=== PATIENT | female | born 1980 | race Caucasian/White ===

== ENCOUNTER 2016-07-18 11:12 | Emergency (ER) | payer MEDICAID ==
[~2016-07-18] VITALS: Ht 157.5 cm; Wt 55.0 kg
[~2016-07-18 11:12] MED LIST: DIAZ10TA PO; FIORIC PO; GABA600T PO; IBUP800 PO; LORTA10 PO; MOBI15TA PO; MONT10TA2 PO; PROZ20CA11 PO
[2016-07-18 11:15] VITALS: BP 125/95; PULSE 91; RESP 14; TEMP 98.7; O2SAT 97
[2016-07-18] MEDS ORDERED: HYDR-3535 PO (11:25)
--- NOTE | 2016-07-18 11:29 | PD ---
HPI Chief Complaint: Cold / Flu Symptoms Time Seen by Provider: 11:25 Travel History International Travel<30 days: No Contact w/Intl Traveler<30days: No Traveled to known affect area: No History of Present Illness HPI Patient comes in with cough and congestion ongoing for 3 days. Patient reports vomiting around 3 AM this morning as well as feeling warm the past 3 days. Patient denies any fevers, nausea, diarrhea, chest pain, shortness of breath, abdominal pain, or headache. Denies doing anything for this. Denies anything making it better or worse. Cough is occasionally productive with yellowish phlegm. PFSH Past Medical History Asthma: Yes Anxiety: Yes Depression: Yes Cardiovascular Problems: Yes (MURMER) Diabetes: No Diminished Hearing: No Musculoskeletal: Yes (LUMBAR DJD, L1, S5, CHRONIC BACK PAIN) Psychiatric: Yes (ANXIETY) Respiratory: Yes (ASTHMA) Immunizations Current: No ?: Not : 1 Past Surgical History AICD: No Gynecologic Surgery: Yes ( MISCARRIAGE) Joint Replacement: No Pacemaker: No Thoracic Surgery: Yes (BREAST AUGMENTATION) Other Surgery: Yes (BREAST AUGMENTATION AND PILONIDAL CYSY REMOVED) Social History Alcohol Use: Yes Tobacco Use: Yes (1 PPD) Substance Use: Yes Allergies-Medications (Allergen,Severity, Reaction): Coded Allergies: Amitriptyline (Unverified Allergy, Severe, UNSTEADY GATE/DIZZINESS, 07/18/16 ) Effexor (Verified Allergy, Severe, UNSTEADY GATE/ DIZZINESS, 07/18/16) Cultivated Oat Pollen (Verified Allergy, Intermediate, 07/18/16) Latex (Verified Allergy, Intermediate, skin swelling, 07/18/16) Lemon (Verified Allergy, Intermediate, YEAST INFECTION, 07/18/16) Prednisone (Verified Allergy, Mild, NAUSEA, DIZZY, 07/18/16) Uncoded Allergies: [place] (Allergy, Mild, THROAT SWELLING, 10/14/10) Reported Meds & Prescriptions Reported Meds & Active Scripts Active Tessalon Perles (Benzonatate) 100 Mg Cap 200 Mg PO Q8HR PRN Ventolin Hfa 18 GM Inh (Albuterol Sulfate) 90 Mcg/Act Aer 2 Puff INH Q4H PRN Reported Lortab (Hydrocodone-Acetaminophen) 10-325 Mg Tab 1 Tab PO TID Review of Systems Except as stated in HPI: all other systems reviewed are Neg Physical Exam Narrative GENERAL: Well-developed, well nourished, in no acute distress, and non-ill appearing. SKIN: Focused skin assessment warm and dry. HEAD: Atraumatic. Normocephalic. EYES: Pupils equal and round. EOMI. No scleral icterus. No injection or drainage. ENT: No nasal bleeding or discharge. Mucous membranes pink and moist. Tympanic membranes pearly marie bilaterally. Posterior pharynx nonerythematous without exudate. Uvula is midline. No tenderness to facial sinuses to palpation. NECK: Trachea midline. No cervical lymphadenopathy. Supple. No nuclear rigidity. CARDIOVASCULAR: Regular rate and rhythm. No murmur appreciated. RESPIRATORY: No accessory muscle use. No respiratory distress. Clear to auscultation. Breath sounds equal bilaterally. GMUSCULOSKELETAL: No obvious deformities. No clubbing. No cyanosis. No edema. Full range of motion. NEUROLOGICAL: Awake and alert. No obvious cranial nerve deficits. Motor grossly within normal limits. Normal speech. PSYCHIATRIC: Appropriate mood and affect; insight and judgment normal. Data Data Last Documented VS Vital Signs Date Time Temp Pulse Resp B/P Pulse Ox O2 Delivery O2 Flow Rate FiO2 07/18/16 11:15 98.7 91 14 125/95 97 Orders Influenzae A/B Antigen (07/18/16 11:24) Group A Rapid Strep Screen (07/18/16 11:24) Chest, Single Ap (07/18/16 ) Strep Culture (Group A) (07/18/16 11:25) MDM Medical Decision Making Medical Screen Exam Complete: Yes Emergency Medical Condition: Yes Differential Diagnosis Influenza, strep pharyngitis, pneumonia, upper respiratory infection, bronchitis , viral syndrome, other Narrative Course Patients symptom complex of cough and congestion is consistent with viral URI. The patient is non-ill appearing and is in no respiratory distress and comfortable. The patient moves air well and oxygen saturations are normal. There is no clinical evidence to suggest pneumonia at this time. Plan of care and management were discussed with the patient who agreed with plan. The patient was instructed to follow up with their physician and instructed to return if worsens, progressively worsening shortness of breath or difficulty breathing, persistent fever, chest pains or discomfort, inability to keep medication or fluids down with or without vomiting, or as needed. Patient in no obvious distress upon re-evaluation. All pertinent laboratory/ Radiology result(s) discussed with patient. Patient was asked if they wanted to speak to my attending, which the patient did not wish to do at this time. Any questions/concerns in reference to patient diagnosis/condition discussed and clarified prior to patient's discharge. Reinforced sheer importance of close follow up with patient's primary physician or primary care clinic. Instructed patient to return to ED immediately, if symptoms return/worsen. Pt showed understanding of above instructions. Further instructions and recommendations were detailed in discharge paperwork. Pt ambulated without difficulty out of ED at discharge. Diagnosis Primary Impression: Upper respiratory infection, viral Patient Instructions: General Instructions, Upper Respiratory Infection (ED) Additional Instructions: Follow-up with your primary care physician in 3-5 days. Take all medication as prescribed. Drink plenty of non-caffeinated and nonalcoholic fluids. Return to the emergency department if symptoms get worse. Med/Other Pt SpecificInfo: Prescription(s) given Scripts Benzonatate (Tessalon Perles)100 Mg [id number] Mg PO Q8HR PRN (COUGH) #15 CAP Ref 0 Prov:Juve Stacy MD 07/18/16 Albuterol 18 GM Inh (Ventolin Hfa 18 GM Inh)90 Mcg/Act Aer2 Puff INH Q4H PRN ( COUGH) #1 INHALER Ref 0 Prov:Juve Stacy MD 07/18/16 Disposition: 01 DISCHARGE HOME Condition: Stable Jung Boyer Jul 18, 2016 11:29
--- NOTE | 2016-07-18 12:10 | RADHPO ---
EXAM DATE/TIME: 07/18/2016 11:51 [facility] COMPARISON: No previous studies available for comparison. INDICATIONS : Congestion and productive cough for three days. MEDICAL HISTORY : Asthma. Heart murmur. SURGICAL HISTORY : Breast augmentation. ENCOUNTER: Initial ACUITY: 3 days PAIN SCORE: 0/10 LOCATION: Bilateral chest FINDINGS: A single view of the chest demonstrates the lungs to be symmetrically aerated without evidence of mas s, infiltrate or effusion. The cardiomediastinal contours are unremarkable. Osseous structures are intact. CONCLUSION: No acute disease. Tahir Palma MD FACR on July 18, 2016 at 12:09 Board Certified Radiologist. This report was verified electronically.
[2016-07-18] MEDS ORDERED: VENTAER INH ×2 (12:14→12:26)
[2016-07-18] MEDS ORDERED: BENZ100 PO ×2 (12:14→12:26)
== END 2016-07-18 12:38 | disposition home or self-care (01) ==
LOC: PHEFT 11:12
DX: J06.9 Acute upper respiratory infection, unspecified (principal); J45.909 Unspecified asthma, uncomplicated; F41.9 Anxiety disorder, unspecified; F32.9 Major depressive disorder, single episode, unspecified; F17.200 Nicotine dependence, unspecified, uncomplicated
CPT/HCPCS: 71010; 87081; 87804; 87880; 99283

== ENCOUNTER 2016-10-16 06:01 | Emergency (ER) | payer MEDICAID ==
[~2016-10-16] VITALS: Ht 162.6 cm; Wt 59.8 kg
[~2016-10-16 06:01] MED LIST changes: +BENZ100 PO; -DIAZ10TA PO; -FIORIC PO; -GABA600T PO; +HYDR-3535 PO; -IBUP800 PO; -LORTA10 PO; -MOBI15TA PO; -MONT10TA2 PO; -PROZ20CA11 PO; +VENTAER INH
[2016-10-16 06:09] VITALS: BP 126/88; PULSE 87; RESP 14; TEMP 98.5; O2SAT 98
[2016-10-16 06:17] VITALS: BP 126/88; PULSE 87; RESP 18; TEMP 98.5
[2016-10-16] MEDS ORDERED: OXYC-395 PO (06:33)
[2016-10-16] MEDS ORDERED: FLUO-1 PO (06:33)
--- NOTE | 2016-10-16 06:33 | PD ---
HPI Chief Complaint: Skin Problem Time Seen by Provider: 06:24 Travel History International Travel<30 days: No Contact w/Intl Traveler<30days: No Traveled to known affect area: No History of Present Illness HPI The patient is a 36-year-old female who has multiple allergies including latex, grass and pollens who complains of a pruritic skin rash below her left axilla, on her neck, behind her knees and conjunctival injection in her right eye for 1 day. 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 She denies any wheezing or shortness of breath. The patient does have a history of bronchospasm, possible asthma. She denies any fever. The patient states she cannot be because she is not sexually active lately. PFSH Past Medical History Asthma: Yes Anxiety: Yes Depression: Yes Cardiovascular Problems: Yes (MURMER) Diabetes: No Diminished Hearing: No Musculoskeletal: Yes (LUMBAR DJD, L1, S5, CHRONIC BACK PAIN) Psychiatric: Yes (ANXIETY) Respiratory: Yes (ASTHMA) Immunizations Current: No Influenza Vaccination: No ?: Not LMP: 6 months ago : 1 Past Surgical History AICD: No Gynecologic Surgery: Yes ( MISCARRIAGE) Joint Replacement: No Pacemaker: No Thoracic Surgery: Yes (BREAST AUGMENTATION) Other Surgery: Yes (BREAST AUGMENTATION AND PILONIDAL CYSY REMOVED) Social History Alcohol Use: Yes Tobacco Use: Yes (1ppd) Substance Use: Yes Allergies-Medications (Allergen,Severity, Reaction): Coded Allergies: Amitriptyline (Verified Allergy, Severe, UNSTEADY GATE/DIZZINESS, 10/16/16) Effexor (Verified Allergy, Severe, UNSTEADY GATE/ DIZZINESS, 10/16/16) Cultivated Oat Pollen (Verified Allergy, Intermediate, 10/16/16) Latex (Verified Allergy, Intermediate, skin swelling, 10/16/16) Lemon (Verified Allergy, Intermediate, YEAST INFECTION, 10/16/16) Prednisone (Verified Allergy, Mild, NAUSEA, DIZZY, 10/16/16) Uncoded Allergies: [place] (Allergy, Mild, THROAT SWELLING, 10/14/10) Reported Meds & Prescriptions Reported Meds & Active Scripts Active Prednisone 50 Mg Tab 50 Mg PO BID Ventolin Hfa 18 GM Inh (Albuterol Sulfate) 90 Mcg/Act Aer 2 Puff INH Q4H PRN Reported Oxycodone (Oxycodone HCl) 10 Mg Tab 10 Mg PO Q6H PRN Prozac (Fluoxetine HCl) 10 Mg Cap 10 Mg PO DAILY Review of Systems Except as stated in HPI: all other systems reviewed are Neg Physical Exam Narrative GENERAL: Well-nourished, well-developed patient in slight apparent distress with her pruritic skin rash. Her vital signs are normal. SKIN: Focused skin assessment warm/dry. There is an erythematous, confluent, slightly papular skin rash located below the left axilla and onto the left lateral thorax's area, behind her neck, both ears, conjunctival area on the right behind the left knee, up on the posterior scalp and both flank areas. HEAD: Normocephalic. EYES: No scleral icterus. No injection or drainage. NECK: Supple, trachea midline. No JVD or lymphadenopathy. CARDIOVASCULAR: Regular rate and rhythm without murmurs, gallops, or rubs. RESPIRATORY: Breath sounds equal bilaterally. No accessory muscle use. Lungs clear to auscultation bilaterally, specifically no wheezes are heard. GASTROINTESTINAL: Abdomen soft, non-tender, nondistended. MUSCULOSKELETAL: No cyanosis, or edema. BACK: Nontender without obvious deformity. No CVA tenderness. Data Data Last Documented VS Vital Signs Date Time Temp Pulse Resp B/P Pulse Ox O2 Delivery O2 Flow Rate FiO2 10/16/16 06:34 77 18 135/79 98 Room Air 10/16/16 06:17 98.5 Orders Prednisone (Deltasone) (10/16/16 06:45) Diphenhydramine (Benadryl) (10/16/16 06:45) Famotidine (Pepcid) (10/16/16 06:45) [facility] Medical Decision Making Medical Screen Exam Complete: Yes Emergency Medical Condition: Yes Medical Record Reviewed: Yes Differential Diagnosis Generalized allergic reaction, contact dermatitis, viral rash, latex allergy Narrative Course The patient has a generalized allergic rash. The etiology of this rash is undetermined at this time. Plan: The patient will be put on Zantac, Benadryl and a tapered course of prednisone over a days. She was offered epinephrine but she says she has anxiety does not want her heart to pound. She should follow-up with a pre sales systems engineer or primary care physician. Diagnosis Primary Impression: Rash due to allergy Med/Other Pt SpecificInfo: Prescription(s) given Scripts Ranitidine (Zantac)150 Mg [id number] Mg PO BID #30 TAB Ref 0 Prov:Mukul Whitlock MD 10/16/16 Prednisone 50 Mg Tab50 Mg PO BID #12 TAB Ref 0 Prov:Mukul Whitlock MD 10/16/16 Disposition: 01 DISCHARGE HOME Condition: Stable Mukul Whitlock MD Oct 16, 2016 06:33
[2016-10-16 06:34] VITALS: BP 135/79; PULSE 77; RESP 18; O2SAT 98
[2016-10-16] MEDS ORDERED: PRED50 PO (06:37)
[2016-10-16] MEDS ORDERED: ZANT150T2 PO (06:38)
[2016-10-16] MEDS ORDERED: FAMOTIDINE 20 MG TAB PO ONE (06:45)
[2016-10-16] MEDS ORDERED: EPINEPHrine HCL (1:1000) 1 MG/ML VIAL IM ONE (06:45)
[2016-10-16] MEDS ORDERED: diphenhydrAMINE HCL 50 MG CAP PO ONE (06:45)
[2016-10-16] MEDS ORDERED: predniSONE 20 MG TAB PO ONE (06:45)
== END 2016-10-16 06:56 | disposition home or self-care (01) ==
LOC: PHED 06:37
DX: R21 Rash and other nonspecific skin eruption (principal); J45.909 Unspecified asthma, uncomplicated; R01.1 Cardiac murmur, unspecified
CPT/HCPCS: 99283; J7512; Q0163

== ENCOUNTER 2017-01-29 22:50 | Emergency (ER) | payer MEDICAID ==
[~2017-01-29] VITALS: Ht 162.6 cm; Wt 61.8 kg
[~2017-01-29 22:50] MED LIST changes: -BENZ100 PO; +FLUO-1 PO; -HYDR-3535 PO; +OXYC-395 PO; +PRED50 PO; +ZANT150T2 PO
[2017-01-29 23:01] VITALS: BP 125/74; PULSE 94; RESP 16; TEMP 97.7; O2SAT 97
--- NOTE | 2017-01-29 23:48 | PD ---
HPI Chief Complaint: Musculoskeletal Complaint Time Seen by Provider: 23:20 Travel History International Travel<30 days: No Contact w/Intl Traveler<30days: No Traveled to known affect area: No History of Present Illness HPI 36yo F with chronic back pain, sciatica and psych presents to the ED with c/o left lower back pain after drinking alcohol and vomiting about an hour ago. States her back tightened up and is in spasm. States pain is worst with movement. States it goes down to her left buttocks and she has history of sciatica. Pt has pain management for chronic back pain and takes lortab for it. States she has been on it for 18-19 years. Denies any fever, chest pain, sob, n/v, abdominal pain, focal weakness or numbness, trauma, fall, IVDA. Pt states she does not want any pain medication and wants me to figure out what is wrong with her. She said she does not want blood test, or give urine. Said she has 3 doctors (pain management, PMD and psychiatrist) and just want someone to figure out what is wrong with her. I offered valium but pt refused. PFSH Past Medical History Asthma: Yes Anxiety: Yes Depression: Yes Cardiovascular Problems: Yes (MURMER) Diabetes: No Diminished Hearing: No Musculoskeletal: Yes (LUMBAR DJD, L1, S5, CHRONIC BACK PAIN) Psychiatric: Yes (ANXIETY) Respiratory: Yes (ASTHMA) Immunizations Current: No ?: Not : 1 Past Surgical History AICD: No Gynecologic Surgery: Yes ( MISCARRIAGE) Joint Replacement: No Pacemaker: No Thoracic Surgery: Yes (BREAST AUGMENTATION) Other Surgery: Yes (BREAST AUGMENTATION AND PILONIDAL CYSY REMOVED) Social History Alcohol Use: Yes Tobacco Use: Yes (1ppd) Substance Use: Yes Allergies-Medications (Allergen,Severity, Reaction): Coded Allergies: amitriptyline (Unverified Allergy, Severe, UNSTEADY GATE/DIZZINESS, ) venlafaxine (Unverified Allergy, Severe, UNSTEADY GATE/ DIZZINESS, 12/01/16 ) grass pollen (Unverified Allergy, Intermediate, 12/01/16) latex (Unverified Allergy, Intermediate, skin swelling, 12/01/16) lemon (Unverified Allergy, Intermediate, YEAST INFECTION, 12/01/16) prednisone (Unverified Allergy, Mild, NAUSEA, DIZZY, 12/01/16) Uncoded Allergies: [place] (Allergy, Mild, THROAT SWELLING, 10/14/10) Reported Meds & Prescriptions Reported Meds & Active Scripts Active Zantac (Ranitidine HCl) 150 Mg Tab 150 Mg PO BID Prednisone 50 Mg Tab 50 Mg PO BID Ventolin Hfa 18 GM Inh (Albuterol Sulfate) 90 Mcg/Act Aer 2 Puff INH Q4H PRN Reported Oxycodone (Oxycodone HCl) 10 Mg Tab 10 Mg PO Q6H PRN Prozac (Fluoxetine HCl) 10 Mg Cap 10 Mg PO DAILY Review of Systems Except as stated in HPI: all other systems reviewed are Neg Physical Exam Narrative GENERAL: 36yo F not in distress. SKIN: Focused skin assessment warm/dry. HEAD: Atraumatic. Normocephalic. EYES: Pupils equal and round. No scleral icterus. No injection or drainage. ENT: No nasal bleeding or discharge. Mucous membranes pink and moist. NECK: Trachea midline. No JVD. CARDIOVASCULAR: Regular rate and rhythm. No murmur appreciated. RESPIRATORY: No accessory muscle use. Clear to auscultation. Breath sounds equal bilaterally. GASTROINTESTINAL: Abdomen soft, non-tender, nondistended. BACK: No midline thoracic or lumbar spine ttp. Left lumbar paraspinal ttp. No CVA tenderness bilaterally. MUSCULOSKELETAL: No obvious deformities. No clubbing. No cyanosis. No edema. NEUROLOGICAL: Awake and alert. No obvious cranial nerve deficits. Motor grossly within normal limits. Normal speech. Sensation intact. No saddle paresthesia. Data Data Last Documented VS Vital Signs Date Time Temp Pulse Resp B/P (MAP) Pulse Ox O2 Delivery O2 Flow Rate FiO2 01/29/17 23:01 97.7 94 16 125/74 (91) 97 MDM Medical Decision Making Medical Screen Exam Complete: Yes Emergency Medical Condition: Yes Differential Diagnosis Musculoskeletal pain vs. acute on chronic back pain vs. sciatica Narrative Course 36yo F with left back spasm after vomiting here for evaluation but refusing any medications or work up. States she just wants me to tell her what is wrong with her. She has been having back pain for 19 years and has no acute trauma or neurologic symptoms. Pt is with her mother and brother. Pt states she has lortab and ibuprofen and does not need any pain medications. Will have pt follow up with PMD as I do not believe she has an emergency. Diagnosis Primary Impression: Left low back pain Qualified Codes: M54.42 - Lumbago with sciatica, left side Patient Instructions: General Instructions Departure Forms: Tests/Procedures Additional Instructions: Please follow up with your primary care physician in 3-7 days. Return to the ED if symptoms worsen. Med/Other Pt SpecificInfo: No Change to Meds Disposition: 01 DISCHARGE HOME Condition: Stable Aparna Alaniz DO Jan 29, 2017 23:48
== END 2017-01-30 00:33 | disposition home or self-care (01) ==
LOC: PHED 22:50
DX: M54.42 Lumbago with sciatica, left side (principal); R11.10 Vomiting, unspecified; G89.29 Other chronic pain; J45.909 Unspecified asthma, uncomplicated; Z72.0 Tobacco use
CPT/HCPCS: 99281

== ENCOUNTER 2017-09-26 13:25 | Emergency (ER) | payer MEDICAID ==
[~2017-09-26] VITALS: Ht 160 cm; Wt 50.0 kg
[2017-09-26 13:32] VITALS: BP 123/83; PULSE 106; RESP 16; TEMP 98.7; O2SAT 99
[2017-09-26] MEDS ORDERED: SODIUM CHLOR 0.9% 1000 ML INJ 1,000 ML IV ONE (14:00)
[2017-09-26] MEDS ORDERED: ADDE10 PO (14:02)
[2017-09-26] MEDS ORDERED: VITA1000 PO (14:02)
[2017-09-26] MEDS ORDERED: HYDR-3366 PO (14:02)
[2017-09-26] MEDS ORDERED: XANA1TAB2 PO (14:02)
[2017-09-26] MEDS ORDERED: PAXI10TA8 PO (14:02)
[2017-09-26] MEDS ORDERED: IBUP1TAB7 PO (14:02)
[2017-09-26] MEDS ORDERED: CENTCHW4 CHEW (14:02)
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
[2017-09-26 14:19] LABS: AUTOMATED NEUTROPHIL # 3.4 TH/MM3 (1.8-7.7); BASOPHIL % 0.6 % (0.0-2.0); EOSINOPHIL # 0.2 TH/MM3 (0-0.4); EOSINOPHIL % 3.1 % (0.0-4.0); HEMATOCRIT 39.6 % (35.0-46.0); HEMOGLOBIN 13.9 GM/DL (11.6-15.3); LYMPH % 35.9 % (9.0-44.0); LYMPHOCYTE # 2.2 TH/MM3 (1.0-4.8); MEAN CELL VOLUME 89.7 FL (80.0-100.0); MEAN CORPUSCULAR HEMOGLOBIN 31.5 PG (27.0-34.0); MEAN CORPUSCULAR HGB CONC 35.1 % (32.0-36.0); MEAN PLATELET VOLUME 8.6 FL (7.0-11.0); MONO % 5.4 % (0.0-8.0); MONOCYTE # 0.3 TH/MM3 (0-0.9); PLATELET COUNT 333 TH/MM3 (150-450); RED BLOOD COUNT 4.42 MIL/MM3 (4.00-5.30); RED CELL DISTRIBUTION WIDTH 13.3 % (11.6-17.2); WHITE BLOOD COUNT 6.1 TH/MM3 (4.0-11.0)
[2017-09-26 14:27] LABS: CHLORIDE 107 MEQ/L (98-107); SODIUM (NA) 138 MEQ/L (136-145)
[2017-09-26 14:30] LABS: CALCIUM 8.7 MG/DL (8.5-10.1)
[2017-09-26 14:31] LABS: ALBUMIN 3.9 GM/DL (3.4-5.0); BICARBONATE 25.4 MEQ/L (21.0-32.0); BLOOD UREA NITROGEN 14 MG/DL (7-18); GLUCOSE,RANDOM 79 MG/DL (74-106)
[2017-09-26 14:34] LABS: ALT (GPT) 15 U/L (10-53); AST (GOT) 11 U/L (15-37); CREATININE 0.68 MG/DL (0.50-1.00); GLOMERULAR FILTRATION RATE 98 ML/MIN (>89)
[2017-09-26 14:35] LABS: TOTAL BILIRUBIN ADULT 0.3 MG/DL (0.2-1.0)
[2017-09-26 14:36] LABS: TOTAL PROTEIN 6.9 GM/DL (6.4-8.2)
[2017-09-26 14:37] LABS: ALKALINE PHOSPHATASE 54 U/L (45-117)
[2017-09-26 15:18] VITALS: BP 125/79
== END 2017-09-26 15:25 | disposition home or self-care (01) ==
LOC: PHED 13:25
DX: K52.9 Noninfective gastroenteritis and colitis, unspecified (principal); R53.81 Other malaise; F12.90 Cannabis use, unspecified, uncomplicated; J45.909 Unspecified asthma, uncomplicated; F41.9 Anxiety disorder, unspecified; F32.9 Major depressive disorder, single episode, unspecified; R01.1 Cardiac murmur, unspecified; F17.200 Nicotine dependence, unspecified, uncomplicated; Z79.899 Other long term (current) drug therapy; Z88.8 Allergy status to other drugs, medicaments and biological substances
CPT/HCPCS: 80053; 84702; 85025; 96360; 99284; J7030